=== PATIENT | female | born 1990 | race Caucasian/White ===

== ENCOUNTER 2019-10-16 12:14 | Outpatient (CLI) | payer MEDICAID ==
--- NOTE | 2019-10-17 17:43 | Ultrasound Report ---
Reason: SUPERVISION OF HIGH RISK Procedure Date: 10/16/2019 Accession Number: [id number] / [id number] Procedure: US - OB Detailed Eval CPT Code: Final Report FULL RESULT: EXAM: COMPLETE OBSTETRICAL ULTRASOUND EXAM DATE: 10/16/2019 02:50 PM. CLINICAL HISTORY: anatomic survey. High-risk . COMPARISON: None. TECHNIQUE: Real-time sonographic evaluation of the fetus performed by the clinic charge nurse. Multiple advertising sales representative static images were saved for review. DATING: Established EGA 22 weeks 0 days with WONG 02/19/2020 based on LMP. EGA 23 weeks 2 days with WONG 02/10/2020 based on clinical dates. EGA 22 weeks 1 day with WONG 02/18/2020 based on the current ultrasound. GENERAL EVALUATION Carlton . Cardiac activity: 149 bpm. movement: Visualized. Presentation: Cephalic. Placenta: Posterior position. No evidence for previa. Umbilical cord: 3 vessel cord. Central placental cord origin. Amniotic fluid: Subjectively normal. MVP 4.4 cm. BIOMETRY Bi-Parietal Diameter (BPD): 5.1 cm, 21 weeks 4 days. Head Circumference (HC): 20.1 cm, 22 weeks 2 days. Abdominal Circumference (AC): 18.8 cm, 23 weeks 4 days. Femur Length (FL): 3.8 cm, 22 weeks 2 days. Estimated Weight: 540 g, 25th percentile for 22 weeks 2 days. ANATOMY The intracranial structures, profile, face/nose/lips, spine, 4 chamber heart and outflow tracts, stomach, abdominal wall and cord insertion, diaphragm, kidneys, bladder, and extremities were visualized and demonstrate no abnormality. MATERNAL STRUCTURES Uterus: Unremarkable. Cervix: Long and closed. Transabdominal length 4.7 cm. 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 Left ovary/adnexa: Unremarkable, 1.7 x 1.1 x 1.9 cm. Free fluid: None. IMPRESSION: 1. Carlton live intrauterine with gestational age 22 weeks 0 days based on LMP. 2. Estimated weight is within expected limits for assigned dating. 3. Normal anatomic survey. No anatomic abnormalities are detected at this time. RADIA
== END 2019-10-16 12:15 | disposition home or self-care (01) ==
LOC: DI 12:14
PROVIDERS: ATTEND Obstetrics & Gynecology
DX: O09.92 Supervision of high risk pregnancy, unspecified, second trimester (principal); Z3A.22 22 weeks gestation of pregnancy
CPT/HCPCS: 76811

== ENCOUNTER 2019-11-18 14:39 | Outpatient (CLI) | payer MEDICAID ==
[2019-11-18 18:01] LABS: BASOPHILS # (AUTO) 0.1 10^3/uL (0.0-0.1); BASOPHILS % (AUTO) 0.4 %; EOSINOPHILS # (AUTO) 0.2 10^3/uL (0.0-0.7); EOSINOPHILS % (AUTO) 1.7 %; HGB - HEMOGLOBIN 10.7 g/dL (12.0-16.0); LYMPHOCYTES # (AUTO) 2.4 10^3/uL (1.5-3.5); LYMPHOCYTES % (AUTO) 18.6 %; MEAN CORPUSCULAR HEMOGLOBIN 29.6 pg (27.0-31.0); MEAN CORPUSCULAR HGB CONC 31.6 g/dL (32.0-36.0); MEAN CORPUSCULAR VOLUME 93.6 fL (81.0-99.0); MEAN PLATELET VOLUME 10.2 fL (7.9-10.8); MONOCYTES # (AUTO) 0.7 10^3/uL (0.0-1.0); MONOCYTES % (AUTO) 5.4 %; NEUTROPHILS # (AUTO) 9.3 10^3/uL (1.5-6.6); NEUTROPHILS % (AUTO) 73.1 %; PLT - PLATELET COUNT 234 10^3/uL (130-450); RED BLOOD COUNT 3.62 10^6/uL (4.20-5.40); RED CELL DISTRIBUTION WIDTH 13.3 % (12.0-15.0); WHITE BLOOD COUNT 12.7 x10^3/uL (4.8-10.8)
== END 2019-11-18 23:59 | disposition home or self-care (01) ==
LOC: LAB.WCP 14:39
PROVIDERS: ATTEND Obstetrics & Gynecology
DX: Z34.80 Encounter for supervision of other normal pregnancy, unspecified trimester (principal)
CPT/HCPCS: 36415; 82950; 85025; 86850

== ENCOUNTER 2020-02-09 13:52 | Emergency (ER) | payer MEDICAID ==
[2020-02-09] MEDS ORDERED: MINERAL OIL ENEMA 133 ML BOTTLE RC STA (14:32)
--- NOTE | 2020-02-09 14:32 | ED Physician Documentation ---
History of Present Illness - Stated complaint Stated Complaint: FEMALE - Chief complaint Chief Complaint: Abd Pain - History obtained from History obtained from: Patient - History of Present Illness Timing: Today Pain level max: 5 Pain level now: 5 - Additonal information Additional information: 29-year-old female states that she has been constipated for the past 2 weeks. Delivered her baby approximately 6 days ago. Has been unable to have a bowel movement since that time. She states she had not had a bowel movement for a week prior to that either. She took stool softeners without relief. Nothing makes it better or worse. No vomiting. No fevers. She states that her legs are still swollen from delivery. She had a . No drainage from the wounds. Urinating without difficulty. Review of Systems Constitutional: denies: Fever, Chills Respiratory: denies: Cough GI: denies: Abdominal Pain, Nausea, Vomiting : denies: Dysuria, Frequency, Hesitancy Skin: denies: Rash Musculoskeletal: denies: Neck pain, Back pain Neurologic: denies: Headache PD PAST MEDICAL HISTORY - Past Medical History Past Medical History: Yes - Past Surgical History Past Surgical History: Yes /[employer]PER[employer]OR: section - Present Medications Home Medications: Ambulatory Orders Medication Instructions Recorded Confirmed Polyethylene Glycol 3350 [Miralax] 17 gm PO DAILY PRN #1 bottle 02/09/20 - Allergies Allergies/Adverse Reactions: Allergies Allergy/AdvReac Type Severity Reaction Status Date / Time Latex, Natural Rubber Allergy Rash Verified 02/09/20 14:11 - Social History Does the pt smoke?: No Smoking Status: Never smoker Does the pt drink ETOH?: No Does the pt have substance abuse?: Yes PD ED PE NORMAL - Vitals Vital signs reviewed: Yes - General General: Alert and oriented X 3, No acute distress - HEENT HEENT: Moist mucous membranes - Neck Neck: Supple, no meningeal sign - Cardiac Cardiac: RRR - Respiratory Respiratory: No respiratory distress, Clear bilaterally - Abdomen Abdomen: Soft, Non tender, Non distended, Other ( incision is clean dry and intact. No signs of infection) - Rectal Rectal: Other (Large firm stool in the rectal vault) - Back Back: No spinal TTP - Derm Derm: Warm and dry, No rash - Extremities Extremities: Other (1+ bilateral lower extremity edema, nonpitting) - Neuro Neuro: Alert and oriented X 3 - Psych Psych: Normal mood, Normal affect Results - Vitals Vitals: Vital Signs - 24 hr 02/09/20 02/09/20 14:07 16:49 Temperature 36.9 C Heart Rate 115 H 88 Respiratory 16 16 Rate Blood Pressure 136/81 H 142/83 H O2 Saturation 98 100 Oxygen O2 Source Room air - Labs Labs: Laboratory Tests 02/09/20 02/09/20 02/09/20 14:41 14:45 14:45 WBC 17.5 H RBC 3.45 L Hgb 10.4 L Hct 32.5 L MCV 94.2 MCH 30.1 MCHC 32.0 RDW 13.5 Plt Count 301 MPV 8.3 Neut # (Auto) 13.9 H Lymph # (Auto) 2.2 Coles # (Auto) 0.9 Eos # (Auto) 0.2 Baso # (Auto) 0.1 Absolute Nucleated RBC 0.00 Nucleated RBC % 0.0 Sodium 137 Potassium 4.2 Chloride 101 Carbon Dioxide 25 Anion Gap 11.0 BUN 15 Creatinine 0.4 Estimated GFR (MDRD) 189 Glucose 82 Calcium 8.7 Total Bilirubin 0.3 AST 18 ALT 33 Alkaline Phosphatase 91 Total Protein 6.7 Albumin 2.9 L Globulin 3.8 Albumin/Globulin Ratio 0.8 L Lipase 24 Urine Color YELLOW Urine Clarity CLEAR Urine pH 5.5 Ur Specific [place] >=1.030 H Urine Protein NEGATIVE Urine Glucose (UA) NEGATIVE Urine Ketones NEGATIVE Urine Occult Blood NEGATIVE Urine Nitrite NEGATIVE Urine Bilirubin NEGATIVE Urine Urobilinogen 0.2 (NORMAL) Ur Leukocyte Esterase NEGATIVE Ur Microscopic Review NOT INDICATED Urine Culture Comments NOT INDICATED PD MEDICAL DECISION MAKING - ED course Complexity details: reviewed results, re-evaluated patient, considered differential, d/w patient, d/w family ED course: Patient was given several enemas in the emergency department along with a manual disimpaction. Patient had a large bowel movement and symptoms resolved. Feels much better. Will place on [facility] for home. We will have her follow-up with OB for further care. Patient counseled regarding signs and symptoms for which I believe and urgent re-evaluation would be necessary. Patient with good understanding of and agreement to plan and is comfortable going home at this time This document was made in part using voice recognition software. While efforts are made to proofread this document, sound alike and grammatical errors may occur. Departure - Departure Disposition: Home, Self Care Clinical Impression: Constipation Qualifiers: Constipation type: unspecified constipation type Qualified Code(s): K59.00 - Constipation, unspecified Condition: Good Instructions: ED Constipation Follow-Up: Shanice Malik MD [Primary Care Provider] - Prescriptions: Polyethylene Glycol 3350 [Miralax] 17 gm PO DAILY PRN #1 bottle PRN Reason: Constipation Comments: Follow-up with your doctor as needed for further care. Make sure you are drinking plenty of water at home. Return if you worsen. You received 1 dose of oxycodone 5 mg today. Discharge Date/Time: 02/09/20 16:56
[2020-02-09 14:48] LABS: BASOPHILS # (AUTO) 0.1 10^3/uL (0.0-0.1); BASOPHILS % (AUTO) 0.4 %; EOSINOPHILS # (AUTO) 0.2 10^3/uL (0.0-0.7); EOSINOPHILS % (AUTO) 1.1 %; HGB - HEMOGLOBIN 10.4 g/dL (12.0-16.0); LYMPHOCYTES # (AUTO) 2.2 10^3/uL (1.5-3.5); LYMPHOCYTES % (AUTO) 12.6 %; MEAN CORPUSCULAR HEMOGLOBIN 30.1 pg (27.0-31.0); MEAN CORPUSCULAR VOLUME 94.2 fL (81.0-99.0); MEAN PLATELET VOLUME 8.3 fL (7.9-10.8); MONOCYTES # (AUTO) 0.9 10^3/uL (0.0-1.0); MONOCYTES % (AUTO) 5.1 %; NEUTROPHILS # (AUTO) 13.9 10^3/uL (1.5-6.6); NEUTROPHILS % (AUTO) 79.4 %; PLT - PLATELET COUNT 301 10^3/uL (130-450); RED BLOOD COUNT 3.45 10^6/uL (4.20-5.40); RED CELL DISTRIBUTION WIDTH 13.5 % (12.0-15.0); WHITE BLOOD COUNT 17.5 x10^3/uL (4.8-10.8)
[2020-02-09 14:58] LABS: BILIRUBIN,URINE NEGATIVE (NEGATIVE); GLUCOSE, URINE (UA) NEGATIVE (NEGATIVE); KETONES,URINE (UA) NEGATIVE (NEGATIVE); LEUKOCYTE ESTERASE, URINE NEGATIVE (NEGATIVE); NITRITE,URINE NEGATIVE (NEGATIVE); OCCULT BLOOD,URINE NEGATIVE (NEGATIVE); PH,URINE 5.5 PH (5.0-7.5); PROTEIN,URINE NEGATIVE (NEGATIVE); UROBILINOGEN,URINE 0.2 (NORMAL) E.U./dL (NORMAL)
[2020-02-09 15:00] LABS: ALBUMIN 2.9 g/dL (3.2-5.5); ALBUMIN/GLOBULIN RATIO 0.8 (1.0-2.2); BILIRUBIN,TOTAL 0.3 mg/dL (0.2-1.0); CALCIUM 8.7 mg/dL (8.5-10.3); CREATININE 0.4 mg/dL (0.4-1.0); TOTAL PROTEIN 6.7 g/dL (6.7-8.2)
[2020-02-09 15:06] LABS: CLARITY,URINE CLEAR (CLEAR)
[2020-02-09] MEDS ORDERED: LIDOCAINE OINTMENT 5% 35.44 GM TUBE TOP STA (16:01)
[2020-02-09] MEDS ORDERED: oxyCODONE 5 MG TABLET PO STA (16:01)
[2020-02-09 16:49] VITALS: BP 142/83
== END 2020-02-09 16:56 | disposition home or self-care (01) ==
LOC: ED 13:52
DX: O99.63 Diseases of the digestive system complicating the puerperium (principal); K59.00 Constipation, unspecified; O99.89 Other specified diseases and conditions complicating pregnancy, childbirth and the puerperium; R60.0 Localized edema
CPT/HCPCS: 36415; 80053; 81003; 83690; 85025; 99283; 99284; A9270; 81001; 87086